=== PATIENT | female | born 1990 | race Caucasian/White ===

== ENCOUNTER → 2018-05-25 | Day surgery (SDC) | payer OTHER ==
[2018-05-19 13:44] LABS: ANION GAP 12.3 mmol/L (8-16); BLOOD UREA NITROGEN 8 mg/dL (7-26); BUN/CREATININE RATIO 12 (6-25); CALCIUM 9.4 mg/dL (8.4-10.2); CARBON DIOXIDE 27 mmol/L (22-29); CHLORIDE 103 mmol/L (98-107); CREATININE, SERUM 0.68 mg/dL (0.57-1.11); EST GLOMERULAR FILTRATION RATE > 60 ML/MIN (60-); GLUCOSE 82 mg/dL (74-118); POTASSIUM 4.3 mmol/L (3.5-5.1); SODIUM 138 mmol/L (136-145)
[~2018-05-25] MED LIST: ACETAMINOPHEN 1000 MG/100 ML IV ONE; BIOTIN2500 MCG PO; BUPIVACAINE 0.25% 30ML SDV INJ ONE; DEXAMETHASONE SOD PHOS INJ 4 MG/ML VIAL ONE; FENTANYL CITRATE/PF 100MCG/2 ML INJ ONE; GLYCOPYRROLATE INJ 1MG/ 5 ML SYR ONE; KETOROLAC TROMETHAMINE 30 MG/ML VIAL ONE; LIDOCAINE HCL 2% LOCAL INJ 5 ML SDV VIAL INJ ONE; METFORMIN HCL500 MG PO; MIDAZOLAM HCL 2 MG/2 ML VIAL ONE; NEOSTIGMINE 5 MG/5ML SYR ONE; ONDANSETRON HCL INJ 2 MG/ML VIAL ONE; PROPOFOL IV EMULSION 10 MG/ML 20 ML VIAL ONE; ROCURONIUM BROMIDE 10 MG/ML 5ML VIAL ONE; SEVOFLURANE INHAL SOLN 250 ML PEN BTL ONE; SPIRONOLACTONE25 MG PO; VIT B12 PO; [UNRECOGNIZED DRUG - OTHER] TOP
--- OUTSIDE RECORDS SUMMARY | 2018-05-25 05:57 | XMS REPORT ---
Author Author [facility] Address Unknown Phone Unavailable Care Team Providers Care Insert Cutter Name Role Phone Unavailable Unavailable Payers Payer Name Policy Type Policy Number Effective Date Expiration Date Problems This patient has no known problems. Allergies, Adverse Reactions, Alerts Allergy Name Allergy Type Status Severity Reaction(s) Onset Date Inactive Date Treating Clinician Comments Sulfa (Sulfonamide Antibiotics) DA Active U 2011-02-15 00:00:00 Medications This patient has no known medications.
--- NOTE | 2018-05-25 08:25 | Operative Report ---
DATE OF PROCEDURE: May 25, 2018 PREOPERATIVE DIAGNOSIS: Chronic adenotonsillitis. POSTOPERATIVE DIAGNOSIS: Chronic adenotonsillitis. PROCEDURE: Tonsillectomy and adenoidectomy. SIGNIFICANT FINDINGS: Tonsils are 2-3+/2-3+ and scarred bilaterally. Adenoids are mildly enlarged. ANESTHESIA: General endotracheal tube anesthesia. SPECIMENS REMOVED: Tonsils (adenoids were coblated). ESTIMATED BLOOD LOSS: Less than 1 mL. COMPLICATIONS: None. INDICATIONS: Patient is a 27-year-old white female with greater than 1-year history of frequent episodes of throat infections manifesting as sore throat, odynophagia, enlarged erythematous and exudative tonsils and enlarged tender tonsillar lymphadenopathy. She experiences about 4 infections per year treated maximally with multiple courses of antibiotics. On examination, her tonsils are 3+/3+ and scarred bilaterally. She is scheduled for tonsillectomy and adenoidectomy for the treatment of chronic adenotonsillitis. Risks and complications of the procedures were thoroughly discussed with patient, and they include infection, bleeding, scarring, failure to improve, need for additional operations, persistent throat pain and throat infections, damaged to teeth, gums, tongue, and lips, chronic pain, voice changes, numbness of the tongue, inability to taste, leakage of fluid through the nose when drinking liquids, scarring of the pharynx resulting in worse permanent nasal obstruction, need for blood transfusions, damage to surrounding nerves, blood vessels and muscles. She fully understands and gives consent. PROCEDURE: Patient was taken to the operating room and placed supine on the operating table where general anesthesia was achieved through orotracheal intubation. Eyes were taped. Shoulder roll was placed. Head and body were draped. Table was turned 90 degrees with the head towards the surgeon. Alejandro-Tulio mouth gag was inserted without difficulty and placed into suspension on a Garcia stand. There was no evidence of bifid uvula, diastasis of the muscular uvulae or notched hard palate. Red rubber catheters were then inserted into the nose and brought out through the mouth to retract the soft palate. Examination of the nasopharynx revealed the adenoids to be mildly hypertrophied. Tonsils were 2-3+/2-3+ bilaterally. The left tonsil was grasped with a tonsillar Allis clamp and was removed with the ArthroCare Coblator on a setting of 6 on cut mode. Right tonsil was removed in the same way. Both tonsillar beds were then addressed for hemostasis with the ArthroCare Coblator on a setting of 3 on coag mode. The adenoids were then removed with the ArthroCare Coblator on a setting of 8 on cut mode taking care to avoid trauma to the torus tubarius bilaterally. Hemostasis was obtained with the Coblator on a setting of 3 on coag mode. Injection with 3 mL of 0.25% plain Marcaine was injected into the free edges of the anterior and posterior tonsillar pillars. Thorough irrigation was then performed. Stomach contents were suctioned with the NG tube. Red rubber catheters and Alejandro-Tulio mouth gag were then removed without difficulty revealing no trauma to the teeth, gums, tongue, and lips. Patient was awakened in the operating room, extubated and taken to the recovery room in good condition. Job#: [id number] LIO GARCIA
[2018-05-25 08:40] VITALS: BP 121/81
== END | disposition home or self-care (01) ==
LOC: OR 05:55
PROVIDERS: ATTEND Otolaryngology
DX: J35.03 Chronic tonsillitis and adenoiditis (principal); A42.9 Actinomycosis, unspecified; E28.2 Polycystic ovarian syndrome; E88.81 Metabolic syndrome and other insulin resistance; L70.9 Acne, unspecified; F41.9 Anxiety disorder, unspecified; F32.9 Major depressive disorder, single episode, unspecified; Z01.812 Encounter for preprocedural laboratory examination; Z88.2 Allergy status to sulfonamides; Z79.84 Long term (current) use of oral hypoglycemic drugs; Z87.891 Personal history of nicotine dependence
CPT/HCPCS: 36415 ×2; 42821; 80048; 81025; 82948; 88304; J0131; J1100; J1885; J2001; J2250; J2405; J2704; J3490